=== PATIENT | male | born 1965 | race Caucasian/White ===

== ENCOUNTER 2023-08-01 12:50 | Outpatient (CLI) | payer MEDICARE, OTHER ==
--- NOTE | 2023-08-01 13:46 | Sleep Patient Instructions ---
Sleep Center Visit Summary - Patient Visit Information Reason for Visit: Initial consultation - Patient Instructions Additional Instructions: You will continue with CPAP therapy with pressure set at 6-16 cmH2O. A supply prescription will be updated with your DME. I have added to update your machine. Pleas call when you get your new device and we will set up your compliance followup appointment. We encourage you to continue to try to lose weight. Please follow up with the sleep care office one month after obtaining new machine. - Clinic Information Contact: [facility] [address] [place] [address] [email or web address] T: [phone]
--- NOTE | 2023-08-01 13:49 | SLEEP CARE CONSULTATION ---
Information from patient questionnaire entered by Gio Ortiz. I have reviewed and concur with the information entered by Gio Ortiz. This document represents the service I personally performed and the decisions made by me, Keke Vegas ARNP. History of Present Illness Service Date and Time: 08/01/2023 1250 Reason for Visit: New patient, sleep apnea on CPAP therapy Chief Complaint: reports: Other (RX RENEWAL) Date of Onset: 20YRS Usual bedtime: 10PM Time it takes to fall asleep: IT VARIES 10 MIN - HR Snores at night: Yes Observed to quit breathing while asleep: Yes Sleeps alone due to snoring: No Number of times waking at night: 3 Reasons for waking at night: reports: Pain, Bathroom Toss, Turn, or Twitch while sleeping: Yes Recalls having dreams: Yes Usually gets out of bed at: 8AM Feels refreshed in the morning: No Morning headache: No Sleepy or fatigued during the day: Yes Ever fallen asleep while driving: No Takes day naps: Yes Dreams during day naps: No Prior sleep studies: Yes Year and Where: 2013 [facility] Additional HPI information: CHUYITA GUILLEN was previously diagnosed to have severe, AHI 43, obstructive sleep apnea-hypopnea syndrome as seen in a split night study done on 04/05/2014 at [facility] in [place], [place] and comes in today to establish care for CPAP therapy. - Parasomnia Symptoms Ever been unable to move upon waking from sleep: No Walks in sleep: No Talks in sleep: No Ever acted out dreams in sleep: No Ever felt weak in the knees when startled or emotional: No Bothered by creepy, crawly, restless sensations in legs: Yes Problems with memory or concentration: Yes CPAP Compliance Data - Data Reviewed with Patient Average duration of nightly device use: 6 hours 13 minutes Compliance rate %: 71 (74/90 days used) Current pressure setting (cmH2O): 6-16 Average residual AHI: 0.5 Central apnea: 0 Obstructive apnea: 0.1 Hypopnea: 0.2 Average large leak: 0.6 L/min Compliance data discussion: He has an ResMed Airsense 10. He has been getting supplies from [employer]. He is using a Respironics Wisp, small/medium cushion. He does have a back up machine that he will use when he is travelling. He says his current machine has been turning itself on lately but works well overall. Subjective Missed days of use due to: reports: travel (uses back up machine) Patient concerns: denies: aerophagia, mask discomfort, air blowing in eyes, mask leak noise, condensation in mask/hose, nasal congestion, dry mouth, nose, throat, epistaxis Observed to snore while using device: No Current pressure setting perceived as: comfortable On therapy, patient: reports: sleeping better, awakening more refreshed, being more awake and alert during the day, more rested overall. denies: drowsiness while driving Initial [place] Sleepiness Scale score: 9 (08/01/23) Past Medical History Past Medical History: reports: Hypertension, Diabetes, Arthritis, Gout, Depression, Mood disorder (PTSD), Other (HYPERLIPIDEMIA, SPINAL DETERIORATION/PAIN) Social History The patient's occupation is a DISABLED. Patient is Legally and lives in . Have you smoked in the past 12 months: No Years of smokin (1.5YRS) Quit date: 2010 Alcohol use: Yes Alcohol amount and frequency: 12 PER WK Caffeine use: Yes Caffeine amount and frequency: 1-2 DAILY Family History Family history of sleep disordered breathing: No Allergies and Home Medications Known drug allergies: No Drug allergies reviewed: Yes Home medication list reviewed: Yes (as listed) Review of Systems Weight loss over past 5 years: 20-30 Cardiovascular: reports: high blood pressure, leg or foot swelling Respiratory: denies: shortness of breath Urinary: reports: frequency, urgency Neurological: denies: headaches Psychiatric: reports: depression Ear/Nose/Throat: reports: nasal congestion, nose bleeds, wisdom teeth removed. denies: tonsillectomy Musculoskeletal: reports: joint pain, back pain, muscle pain or cramping, mob ility problems Immunologic: reports: sneezing, other (urticaria) Physical Exam Vital signs obtained and entered by: GIO Hay MA Blood Pressure: 110/70 (LEFT ARM) Cuff size: long Heart Rate: 67 O2 Saturation: 96 Height: 6 ft 3 in Weight: 305 lb 12.8 oz Body Mass Index: 38.2 BMI Classification: Obese Neck circumference: 18.5 Heart: regular rate and rhythm Lungs: clear bilaterally Impression and Plan 1. Obstructive Sleep Apnea-Hypopnea Syndrome, severe, with good treatment compliance and good apnea control. On CPAP therapy, the patient has better sleep quality and is more rested overall. His machine was last updates in 10/2017. The patients CPAP is over 5 years old and of reasonable use. Thus, the CPAP will be updated. A DWO prescription will be made. Compliance guidelines for new device and follow up discussed. Patient's apnea severity and rationale for treatment to reduce apnea, improve sleep quality and reduce cardiovascular and cerebrovascular events was reviewed. I also reviewed the benefit of consistent device use of CPAP for hypertension, diabetes, depression. 2. Obesity, unspecified. Currently patients BMI is 38.2. Obesity increases the risk of apnea, CPAP pressure requirements and overall health risks especially cardiovascular and diabetes. Thus patient is advised to continue to try to lose weight. * Continue auto CPAP pressure at 6-16 cmH2O * Update machine * Update supply prescription * Notify me if snoring with mask or feeling that the pressure is too much or too little * Attempt to lose weight * Call this office if any problems using CPAP * Return for follow up one month after obtaining new machine, or sooner if concerns arise Counseling Topics: Weight loss health impact Prescriptions: Auto CPAP, Device supplies Plan: followup for compliance followup Visit Type: In Office Time Spent with Patient (minutes): 30 Provider Statement: I spent 100% of the Face to Face Visit with the patient with greater than 50% spent counseling the patient and coordination of care.
[2023-08-01 13:55] VITALS: BP 110/70; O2SAT 96
== END 2023-08-01 12:51 | disposition home or self-care (01) ==
LOC: SC 12:50
PROVIDERS: ATTEND Nurse Practitioner Family
DX: G47.33 Obstructive sleep apnea (adult) (pediatric) (principal); E66.9 Obesity, unspecified; Z68.38 Body mass index [BMI] 38.0-38.9, adult; Z87.891 Personal history of nicotine dependence
CPT/HCPCS: 99203; G0463; 99212

== ENCOUNTER 2023-10-24 12:57 | Outpatient (CLI) | payer MEDICARE, OTHER ==
--- NOTE | 2023-10-24 13:35 | Sleep Patient Instructions ---
Sleep Center Visit Summary - Patient Visit Information Reason for Visit: First compliance with new device - Patient Instructions Additional Instructions: You were here for follow up of CPAP therapy. You will be continued on CPAP therapy with pressure at 6-9 cmH2O. Please let us know if the pressure change is uncomfortable and we can make further adjustments of the pressure. You should follow up with sleep care in 12 months. You may contact us sooner for any questions or concerns. - Clinic Information Contact: [facility] [address] [place] [id number] [email or web address] T: [phone]
--- NOTE | 2023-10-24 13:40 | SLEEP CARE CONSULTATION ---
Information from patient questionnaire entered by Daisy Ortiz. I have reviewed and concur with the information entered by Daisy Ortiz. This document represents the service I personally performed and the decisions made by me, Keke Vegas ARNP. History of Present Illness Service Date and Time: 10/24/2023 1257 Previous diagnosis: Severe, Obstructive Sleep Apnea-Hypopnea Syndrome AHI: 43 (in 2013) Reason for follow up: first compliance after device update Equipment type: CPAP (RESMED Airsense 11, NEED MACHINE) Equipment obtained from: [employer] ([employer]) Mask brand: Respironics (Wisp) Backup mask available: Yes Last cushion change: Yesterday Prior sleep studies: Yes Year and Where: 2013 [facility] additional information: EDWARD DAY was diagnosed to have severe, AHI 43, obstructive sleep apnea- hypopnea syndrome and returned today for CPAP therapy first compliance after updating device follow-up. Sleep Study - Results Prior sleep studies: Yes Year and Where: 2013 [facility] CPAP Compliance Data - Data Reviewed with Patient Average duration of nightly device use: 7 hours 25 minutes Compliance rate %: 93 (30/30 days used) Current pressure setting (cmH2O): 6-16 (median 6.6, avg 9.3, max 10.8) Average residual AHI: 0.4 Central apnea: 0 Obstructive apnea: 0.2 Average large leak: 1.5 L/min Subjective Missed days of use due to: reports: other (forgot to switch SD card back from other machine) Patient concerns: reports: air blowing in eyes, nasal congestion (has sinus infection), dry mouth, nose, throat. denies: aerophagia, mask discomfort, mask leak noise, condensation in mask/hose, epistaxis Observed to snore while using device: No Current pressure setting perceived as: comfortable (sometimes too high, sounds louder) On therapy, patient: reports: sleeping better, awakening more refreshed. denies: drowsiness while driving Initial [place] Sleepiness Scale score: 9 (08/01/23) Current [place] Sleepiness Scale score: 12 Allergies and Home Medications Known drug allergies: No Drug allergies reviewed: Yes Home medication list reviewed: Yes (amoxicillin for nasal infection) Allergy and home medication list: Allergies No Known Drug Allergies Allergy (Verified 10/22/23 15:26) Review of Systems Review of systems same as previous: Yes (nasal infection) Physical Exam Vital signs obtained and entered by: SHAILA ALDANA Blood Pressure: 141/93 Cuff size: regular (left arm) Heart Rate: 89 O2 Saturation: 95 Height: 6 ft 3 in Weight: 303 lb Body Mass Index: 37.8 BMI Classification: Obese Impression and Plan 1. Obstructive Sleep Apnea-Hypopnea Syndrome, severe, with good treatment compliance and good apnea control. On CPAP therapy, the patient has better sleep quality and is more rested overall. He feels like the pressure may be to high because the machine seems louder than his old machine but his thinks the machine is quieter. The patients pressure will be changed to autoCPAP 6-9 cmH20 for patient comfort. Patient advised to contact me if pressure change is uncomfortable so that it can be adjusted. Goals for apnea control discussed. Patient's apnea severity and rationale for treatment to reduce apnea, improve sleep quality and reduce cardiovascular and cerebrovascular events was reviewed. I also reviewed the benefit of consistent device use of CPAP for hypertension, diabetes, depression and mood disorder (PTSD). 2. Obesity, unspecified. Currently patients BMI is 37.8. Obesity increases the risk of apnea, CPAP pressure requirements and overall health risks especially cardiovascular and diabetes. Thus patient is advised to lose weight. * Change auto CPAP pressure to 6-9 cmH2O * Notify me if snoring with mask or feeling that the pressure is too much or too little * Attempt to lose weight * Call this office if any problems using CPAP * Return for follow up in 12 months, or sooner if concerns arise Adjust device pressure to (cmH2O): 6-9 Counseling Topics: Weight loss health impact Follow up with Sleep Care in: 1 year Visit Type: In Office Time Spent with Patient (minutes): 23 Provider Statement: I spent 100% of the Face to Face Visit with the patient with greater than 50% spent counseling the patient and coordination of care.
[2023-10-24 13:42] VITALS: BP 141/93; O2SAT 95
== END 2023-10-24 12:58 | disposition home or self-care (01) ==
LOC: SC 12:57
PROVIDERS: ATTEND Nurse Practitioner Family
DX: G47.33 Obstructive sleep apnea (adult) (pediatric) (principal); E66.9 Obesity, unspecified; Z68.37 Body mass index [BMI] 37.0-37.9, adult
CPT/HCPCS: 99213; G0463; 99212